=== PATIENT | female | born 1995 | race Caucasian/White ===

== ENCOUNTER 2022-05-22 15:44 | Day surgery (SDC) | payer OTHER ==
[2022-05-22 16:23] VITALS: BMI 34.3
[2022-05-22] MEDS ORDERED: hydrALAZINE 20 MG/ML VIAL SLOW IVP PRN (16:50)
[2022-05-22 16:57] LABS: Bilirubin Neg (Negative); Blood, Urine Negative (Negative); Clarity Clear (Clear); Glucose, Urine (Dipstick) Normal (Negative); Ketone, Urine Negative (Negative); Leukocyte Negative (Negative); Nitrite Negative (Negative); Protein, Urine (Dipstick) Negative (Neg-Trace); Urobilinogen Normal mg/dL (Less than 2)
[2022-05-22] MEDS ORDERED: Lactated Ringer's 1,000 ML IV SCH ×3 (17:00→22:00)
[2022-05-22 17:08] LABS: CAUTI Indications for Culture Pregnancy; RBC/HPF 0-3 HPF (0-3); Squamous Epithelial 0-3 HPF (0-3); WBC/HPF 0-3 HPF (0-3)
[2022-05-22 17:09] LABS: Bacteria/HPF None Seen HPF (None Seen)
[2022-05-22 17:10] LABS: Urine Culture Reflex Yes Yes
[2022-05-22 18:46] LABS: Fetal Membranes Rupture No Membranes Rupture (No Rupture)
[2022-05-22] MEDS ORDERED: Butorphanol Tartrate 1 MG/ML VIAL SLOW IVP PRN (19:18)
[2022-05-22] MEDS ORDERED: Butorphanol Tartrate 1 MG/ML VIAL ONE (19:26)
[2022-05-22] MEDS ORDERED: Promethazine HCl 25 MG/ML VIAL ONE (22:00)
[2022-05-22] MEDS ORDERED: Sodium Chloride 0.9% 50 ML ONE (22:00)
[2022-05-22] MEDS ORDERED: Meperidine HCl/PF 25 MG/ML VIAL SLOW IVP SCH (22:00)
[2022-05-22] MEDS ORDERED: Promethazine HCl 25 MG in Sodium Chloride 0.9% 50 ML IVPB SCH (22:00)
== END 2022-05-23 01:21 | disposition home or self-care (01) ==
LOC: CSHLD/OP 15:44
PROVIDERS: ATTEND Student in an Organized Health Care Education/Training Program
DX: O47.03 False labor before 37 completed weeks of gestation, third trimester (principal); Z88.2 Allergy status to sulfonamides; Z3A.33 33 weeks gestation of pregnancy
CPT/HCPCS: 81001; 84112; 87086; 87480; 87510; 87660; 96360; 96361; 96375; 99285; J0595; J2175; J2550

== ENCOUNTER 2022-05-23 17:41 | Day surgery (SDC) | payer OTHER ==
[2022-05-23] MEDS ORDERED: hydrALAZINE 20 MG/ML VIAL SLOW IVP PRN (18:32)
[2022-05-23] MEDS ORDERED: Acetaminophen 500 MG TAB PO PRN (18:59)
[2022-05-23 19:05] LABS: Creatinine, Urine 41.22 mg/dL (47-110); Protein, Urine Random Quant Less than 10 mg/dL (1-14)
[2022-05-23 19:23] LABS: #Eosinphils 0.2 10x3/uL (0.0-0.5); #Monocytes 0.8 10x3/uL (0.0-1.1); %Basophils 0.3 % (0.0-2.0); %Eosinophils 1.8 % (0.0-6.0); %Neutrophils 57.2 % (40.0-75.0); Hemoglobin 11.2 g/dL (12.0-15.5); Mean Corpuscular HGB CONC 33.7 g/dL (32.0-36.0); Mean Corpuscular Hemoglobin 30.3 pg (27.0-33.0); Mean Corpuscular Volume 89.7 fl (81.6-98.3); Platelet Count 248 10x3/uL (150-450); RBC Distribution Width 12.9 % (11.5-14.5); White Blood Cell (WBC) Count 10.4 10x3/uL (3.5-10.5)
[2022-05-23 19:46] LABS: ALT (SGPT) 14 U/L (8-55); AST (SGOT) 13 U/L (5-34); Albumin 3.2 g/dL (3.5-5.0); Alkaline Phosphatase 61 U/L (40-110); Anion Gap 14 mmol/L (10-20); BUN (Urea Nitrogen) 7 mg/dL (7.0-18.7); Bilirubin, Total 0.3 mg/dL (0.2-1.2); Calc. Creatinine Clearance 0 mL/min (70-130); Calcium 8.6 mg/dL (7.8-10.44); Carbon Dioxide 20 mmol/L (22-29); Chloride 107 mmol/L (98-107); Estimated GFR 128; Globulin 2.8 g/dL (2.4-3.5); Glucose 78 mg/dL (70-105); Potassium 3.5 mmol/L (3.5-5.1); Sodium 137 mmol/L (136-145)
[2022-05-23] MEDS ORDERED: Lactated Ringer's 1,000 ML IV SCH (20:15)
== END 2022-05-23 21:17 | disposition home or self-care (01) ==
LOC: CSHLD/OP 17:41
PROVIDERS: ATTEND Student in an Organized Health Care Education/Training Program
DX: O13.3 Gestational [pregnancy-induced] hypertension without significant proteinuria, third trimester (principal); O47.03 False labor before 37 completed weeks of gestation, third trimester; O99.891 Other specified diseases and conditions complicating pregnancy; G90.A Postural orthostatic tachycardia syndrome [POTS]; Z3A.34 34 weeks gestation of pregnancy
CPT/HCPCS: 36415; 80053; 82570; 84156; 85025; 96360; 99284

== ENCOUNTER 2022-06-07 21:18 | Day surgery (SDC) | payer OTHER ==
[2022-06-07 21:46] VITALS: BMI 34.8
[2022-06-07] MEDS ORDERED: hydrALAZINE 20 MG/ML VIAL SLOW IVP PRN (21:59)
== END 2022-06-07 22:44 | disposition home or self-care (01) ==
LOC: CSHLD/OP 21:18
PROVIDERS: ATTEND Student in an Organized Health Care Education/Training Program
DX: O47.03 False labor before 37 completed weeks of gestation, third trimester (principal); O13.3 Gestational [pregnancy-induced] hypertension without significant proteinuria, third trimester; O32.1XX0 Maternal care for breech presentation, not applicable or unspecified; O99.413 Diseases of the circulatory system complicating pregnancy, third trimester; G90.A Postural orthostatic tachycardia syndrome [POTS]; O99.343 Other mental disorders complicating pregnancy, third trimester; F41.9 Anxiety disorder, unspecified; O26.41 Herpes gestationis, first trimester; Z88.2 Allergy status to sulfonamides; Z79.899 Other long term (current) drug therapy; Z3A.36 36 weeks gestation of pregnancy

== ENCOUNTER 2022-06-11 15:39 | Observation (INO) | payer OTHER ==
[2022-06-11] MEDS ORDERED: Ipratropium/Albuterol 3 ML NEB ONE ×2 (16:20→17:29)
[2022-06-11 16:41] LABS: #Basophils 0.1 10x3/uL (0.0-0.2); #Eosinphils 0.5 10x3/uL (0.0-0.5); #Monocytes 1.1 10x3/uL (0.0-1.1); #Neutrophils 6.2 10x3/uL (1.5-8.4); %Basophils 0.6 % (0.0-2.0); %Eosinophils 4.2 % (0.0-6.0); %Lymphocytes 30.8 % (18.0-47.0); %Monocytes 9.4 % (0.0-10.0); %Neutrophils 54.4 % (40.0-75.0); Hemoglobin 12.1 g/dL (12.0-15.5); Mean Corpuscular HGB CONC 33.2 g/dL (32.0-36.0); Mean Corpuscular Hemoglobin 29.7 pg (27.0-33.0); Mean Corpuscular Volume 89.4 fl (81.6-98.3); Mean Platelet Volume 9.9 fl (7.4-10.4); Platelet Count 245 10x3/uL (150-450); RBC Distribution Width 13.1 % (11.5-14.5); Red Blood Cell (RBC) Count 4.07 10x6/uL (3.90-5.03); White Blood Cell (WBC) Count 11.3 10x3/uL (3.5-10.5)
[2022-06-11 16:48] LABS: Bilirubin Neg (Negative); Blood, Urine Negative (Negative); Clarity Clear (Clear); Glucose, Urine (Dipstick) Normal (Negative); Ketone, Urine Negative (Negative); Leukocyte Negative (Negative); Nitrite Negative (Negative); Protein, Urine (Dipstick) Negative (Neg-Trace); Urobilinogen Normal mg/dL (Less than 2)
[2022-06-11 16:54] LABS: Anion Gap 13 mmol/L (10-20); BUN (Urea Nitrogen) 6 mg/dL (7.0-18.7); Calc. Creatinine Clearance 0 mL/min (70-130); Calcium 9.3 mg/dL (7.8-10.44); Carbon Dioxide 19 mmol/L (22-29); Chloride 105 mmol/L (98-107); Estimated GFR 131; Glucose 68 mg/dL (70-105); Magnesium 1.7 mg/dL (1.6-2.6); Sodium 133 mmol/L (136-145)
[2022-06-11 17:34] LABS: SARS-CoV-2 NAA Rapid Test Not Detected (NotDetected)
[2022-06-11] MEDS ORDERED: methylPREDNISolone Sod Succ/PF 125 MG/2 ML VIAL ONE (18:15)
[2022-06-11] MEDS ORDERED: Amoxicillin/Potassium Clav 875 MG TAB ONE (18:15)
[2022-06-11 18:52] VITALS: BMI 33.8
[2022-06-11] MEDS ORDERED: hydrALAZINE 20 MG/ML VIAL SLOW IVP PRN ×2 (19:05→22:49)
[2022-06-11] MEDS ORDERED: Lactated Ringer's 1,000 ML IV SCH ×2 (22:15→23:00)
[2022-06-11] MEDS ORDERED: Ondansetron PF 4 MG/2 ML Vial IVP PRN (22:49)
[2022-06-11] MEDS ORDERED: Acetaminophen 500 MG TAB PO PRN (22:49)
[2022-06-11] MEDS ORDERED: Promethazine HCl 25 MG/ML VIAL IM PRN (22:49)
[2022-06-11] MEDS ORDERED: Butorphanol Tartrate 1 MG/ML VIAL SLOW IVP PRN (22:49)
[2022-06-12 00:02] LABS: Hemoglobin 11.8 g/dL (12.0-15.5); Mean Corpuscular HGB CONC 33.7 g/dL (32.0-36.0); Mean Corpuscular Hemoglobin 30.4 pg (27.0-33.0); Mean Corpuscular Volume 90.2 fl (81.6-98.3); Mean Platelet Volume 9.9 fl (7.4-10.4); Platelet Count 230 10x3/uL (150-450); RBC Distribution Width 13.1 % (11.5-14.5); Red Blood Cell (RBC) Count 3.88 10x6/uL (3.90-5.03); White Blood Cell (WBC) Count 12.7 10x3/uL (3.5-10.5)
[2022-06-12 00:27] LABS: HBSAg Index 0.15 S/CO (0-0.99); Hep B Surf Ag Non-Reactive S/CO (NonReactive)
[2022-06-12 00:28] LABS: Syphilis Antibody Nonreactive (Nonreactive); Syphilis Antibody Index 0.04 S/CO (<1.00 Non-Reactive)
[2022-06-12 06:21] LABS: Fetal Membranes Rupture No Membranes Rupture (No Rupture)
[2022-06-12] MEDS ORDERED: Ventolin HFA Inhaler 60 PUFF INHALER INH PRN (07:51)
== END 2022-06-12 14:00 | disposition home health service (06) ==
LOC: CSHERS 15:39 → CSHLD/OP 18:13 → CSHLD 23:51
PROVIDERS: ADMIT Student in an Organized Health Care Education/Training Program; ATTEND Student in an Organized Health Care Education/Training Program
DX: O99.513 Diseases of the respiratory system complicating pregnancy, third trimester (principal); O36.8131 Decreased fetal movements, third trimester, fetus 1; D72.829 Elevated white blood cell count, unspecified; I10 Essential (primary) hypertension; Z20.822 Contact with and (suspected) exposure to COVID-19; Z3A.37 37 weeks gestation of pregnancy
CPT/HCPCS: 71045; 76819; 80048; 81003; 83735; 83880; 84112; 85025; 86780; 86850; 86900; 86901; 87340; 94640; 94664; 94760; 96374; G0378; J2930; J7620

== ENCOUNTER 2022-06-13 06:04 | Inpatient (IN) | payer OTHER ==
[2022-06-13 07:28] VITALS: BMI 33.8
[2022-06-13] MEDS ORDERED: Promethazine HCl 25 MG/ML VIAL IM PRN ×2 (07:30→11:31)
[2022-06-13] MEDS ORDERED: Ketorolac Tromethamine 30 MG/ML VIAL IVP PRN (07:30)
[2022-06-13] MEDS ORDERED: Ondansetron PF 4 MG/2 ML Vial IVP PRN ×2 (07:30→11:31)
[2022-06-13] MEDS ORDERED: Promethazine HCl 25 MG SUPP PR PRN (07:30)
[2022-06-13] MEDS ORDERED: Moisturizing Cream (Eucerin) 113 GM JAR TOP PRN (07:30)
[2022-06-13] MEDS ORDERED: Communication Order-Pharmacy FS SCH (07:30)
[2022-06-13] MEDS ORDERED: diphenhydrAMINE 50 MG/ML VIAL IVP PRN (07:30)
[2022-06-13] MEDS ORDERED: Naloxone HCl 0.4 mg/ml Vial IV PRN (07:30)
[2022-06-13] MEDS ORDERED: Naloxone HCl 0.4 mg/ml Vial IVP PRN ×2 (07:30)
[2022-06-13] MEDS ORDERED: Ondansetron PF 4 MG/2 ML Vial ONE (07:37)
[2022-06-13] MEDS ORDERED: Oxytocin 10 UNITS/ML VIAL ONE (07:37)
[2022-06-13] MEDS ORDERED: Morphine PF 10 MG/10 ML VIAL ONE (07:38)
[2022-06-13] MEDS ORDERED: Phenylephrine 10 MG/ML VIAL ONE (07:38)
[2022-06-13] MEDS ORDERED: Famotidine/PF 20 mg/2ml Vial SLOW IVP PRN (07:44)
[2022-06-13] MEDS ORDERED: Bicitra 30 ML UDCUP PO PRN (07:44)
[2022-06-13] MEDS ORDERED: CEFAZOLIN 2 GM in Sodium Chloride 0.9% 100 ML IVPB SCH (07:45)
[2022-06-13] MEDS ORDERED: Lidocaine 1% PF 5 ML VIAL ONE (08:28)
[2022-06-13] MEDS ORDERED: Misoprostol 200 MCG TAB ONE (08:51)
[2022-06-13] MEDS ORDERED: HYDROcodone/Acetaminophen 5/325 mg Tablet PO PRN ×2 (11:31)
[2022-06-13] MEDS ORDERED: Bisacodyl 10 MG SUPP PR PRN (11:31)
[2022-06-13] MEDS ORDERED: Simethicone Chewable 80 MG TAB PO PRN (11:31)
[2022-06-13] MEDS ORDERED: diphenhydrAMINE 25 MG CAP PO PRN (11:31)
[2022-06-13] MEDS ORDERED: hydrALAZINE 20 MG/ML VIAL SLOW IVP PRN (11:31)
[2022-06-13] MEDS ORDERED: Lanolin Ointment 7 GM TUBE TOP PRN (11:31)
[2022-06-13] MEDS ORDERED: Boostrix 0.5 ML (Tdap) VIAL (>/=7 yrs of age) IM ONE (11:31)
[2022-06-13] MEDS ORDERED: Ferrous Sulfate 325 MG TAB PO SCH (12:00)
[2022-06-13] MEDS ORDERED: Docusate 100 MG CAP PO SCH (12:00)
[2022-06-13] MEDS ORDERED: Prenatal Vitamin 1 TAB PO SCH (12:00)
[2022-06-13] MEDS: Ketorolac Tromethamine 30 MG/ML VIAL IVP PRN ×2 (14:00→21:09)
[2022-06-13] MEDS ORDERED: Ibuprofen 800 MG TAB PO SCH (14:00)
[2022-06-13] MEDS: Docusate 100 MG CAP PO SCH (21:10)
[2022-06-13] MEDS: Ferrous Sulfate 325 MG TAB PO SCH (21:10)
[2022-06-14 04:03] LABS: Hemoglobin 10.7 g/dL (12.0-15.5); Mean Corpuscular HGB CONC 32.6 g/dL (32.0-36.0); Mean Corpuscular Hemoglobin 29.8 pg (27.0-33.0); Mean Corpuscular Volume 91.4 fl (81.6-98.3); Platelet Count 224 10x3/uL (150-450); RBC Distribution Width 13.1 % (11.5-14.5); Red Blood Cell (RBC) Count 3.59 10x6/uL (3.90-5.03); White Blood Cell (WBC) Count 12.2 10x3/uL (3.5-10.5)
[2022-06-14] MEDS: Ibuprofen 800 MG TAB PO SCH ×3 (05:58→21:06)
[2022-06-14] MEDS: Ferrous Sulfate 325 MG TAB PO SCH ×2 (08:59→21:06)
[2022-06-14] MEDS: Docusate 100 MG CAP PO SCH ×2 (08:59→21:06)
[2022-06-14] MEDS: Prenatal Vitamin 1 TAB PO SCH (08:59)
[2022-06-14] MEDS: Acetaminophen 325 MG TAB PO PRN ×2 (13:11→17:53)
[2022-06-15 04:58] VITALS: TEMP 97.9
[2022-06-15] MEDS: Ibuprofen 800 MG TAB PO SCH (05:55)
[2022-06-15] MEDS: Ferrous Sulfate 325 MG TAB PO SCH (07:23)
[2022-06-15] MEDS: Prenatal Vitamin 1 TAB PO SCH (08:06)
[2022-06-15] MEDS: Docusate 100 MG CAP PO SCH (08:06)
[2022-06-15 08:07] VITALS: BP 131/68
[2022-06-18] MEDS ORDERED: Ibuprofen 800 MG TAB PO SCH (22:00)
== END 2022-06-15 11:10 | disposition home or self-care (01) | DRG 784 ==
LOC: CSHLD 06:04 → CSHPP 12:38
PROVIDERS: ADMIT Student in an Organized Health Care Education/Training Program; ATTEND Student in an Organized Health Care Education/Training Program
PROC: 10D00Z1 Extraction of Products of Conception, Low, Open Approach (ICD-10-PCS; principal; 2022-06-13)
PROC: 0UT70ZZ Resection of Bilateral Fallopian Tubes, Open Approach (ICD-10-PCS; 2022-06-13)
DX: O13.4 Gestational [pregnancy-induced] hypertension without significant proteinuria, complicating childbirth (principal); Z3A.37 37 weeks gestation of pregnancy; Z37.0 Single live birth; O99.354 Diseases of the nervous system complicating childbirth; G90.A Postural orthostatic tachycardia syndrome [POTS]; O32.1XX0 Maternal care for breech presentation, not applicable or unspecified; O99.344 Other mental disorders complicating childbirth; F41.9 Anxiety disorder, unspecified; Z30.2 Encounter for sterilization; Z80.3 Family history of malignant neoplasm of breast; Z79.899 Other long term (current) drug therapy; Z79.82 Long term (current) use of aspirin; Z88.2 Allergy status to sulfonamides
CPT/HCPCS: 51702; 71045; 76819; 80048; 81003; 83735; 83880; 84112; 85025; 85027; 86780; 86850; 86900; 86901; 87340; 88302; 94640; 94664; 94760; 96374; 99285; G0378; J1885; J2274; J2370; J2405; J2590; J2930; J3490; J7620; S0028

== ENCOUNTER 2022-06-29 15:49 | Emergency (ER) | payer OTHER ==
[2022-06-29] MEDS ORDERED: diphenhydrAMINE 50 MG/ML VIAL ONE (19:00)
[2022-06-29] MEDS ORDERED: Magnesium 2 GM/50 ML BAG (IN WATER) ONE (19:00)
[2022-06-29] MEDS ORDERED: Acetaminophen 500 MG TAB ONE (19:00)
[2022-06-29] MEDS ORDERED: Ketorolac Tromethamine 30 MG/ML VIAL ONE (19:00)
[2022-06-29] MEDS ORDERED: Metoclopramide HCl 10 MG/2 ML VIAL ONE (19:00)
== END 2022-06-29 20:37 | disposition home or self-care (01) ==
LOC: CSHERS 15:49
DX: O99.893 Other specified diseases and conditions complicating puerperium (principal); R51.9 Headache, unspecified; O10.93 Unspecified pre-existing hypertension complicating the puerperium
CPT/HCPCS: 36415; 70450; 86850; 86900; 86901; 96365; 96375; J1200; J1885; J2765; J3475